=== PATIENT | male | born 1955 | race Two or more races ===

== ENCOUNTER 2023-10-06 06:33 | Emergency (ER) | payer OTHER ==
[~2023-10-06] VITALS: Ht 162.6 cm; Wt 63.5 kg
[2023-10-06] MEDS ORDERED: PLAVIX75 MG (06:37)
[2023-10-06] MEDS ORDERED: LISINOPRIL20 MG (06:37)
[2023-10-06] MEDS ORDERED: HYDROCHLOROTHIA50 MG (06:37)
[2023-10-06] MEDS ORDERED: LIPITOR40 M1 (06:37)
[2023-10-06] MEDS ORDERED: ADULT LOW DOSE81 M1 (06:38)
[2023-10-06] MEDS ORDERED: TOPROL XL25 M1 (06:38)
[2023-10-06] MEDS ORDERED: MEPERIDINE HCL 25 MG/ML AMPUL IV STA (07:36)
[2023-10-06] MEDS ORDERED: ONDANSETRON HCL 2 MG/ML VIAL IV STA (07:36)
[2023-10-06] MEDS ORDERED: FAMOTIDINE/PF 20 MG/2 ML VIAL IV PUSH STA (07:37)
[2023-10-06] MEDS ORDERED: 0.9 % SODIUM CHLORIDE 1,000 ML IV ONE (07:45)
[2023-10-06 09:17] LABS: PH,URINE 5.5 (5.0-8.0); URINE APPEARANCE Clear; URINE BILIRRUBIN Small (NEGATIVE); URINE BLOOD Negative; URINE COLOR Dark Yellow; URINE GLUCOSE Negative (NEGATIVE); URINE KETONE Trace (NEGATIVE); URINE LEUKOCYTE Negative; URINE NITRATE Negative; URINE PROTEIN 30 (NEGATIVE)
[2023-10-06 09:18] LABS: URINE BACTERIA 8.8 uL (0.0-1933); URINE RBC 28.4 uL (0.0-20.8)
[2023-10-06 09:21] LABS: URINE WBC 1.2 uL (0.0-23.2)
[2023-10-06 09:23] LABS: HEMATOCRIT 48.4 % (39.0-48.0); HEMOGLOBIN 16.3 g/dL (13-16.00); MEAN CELL VOLUME 92.1 fL (80.0-100.00); MEAN CORPUSCULAR HEMOGLOBIN 31.1 pg (27.00-32.0); MEAN CORPUSCULAR HGB CONC 33.7 g/dl (32.0-36.0); RED BLOOD COUNT 5.26 M/uL (4.00-6.00); RED CELL DISTRIBUTION WIDTH 13.2 % (11.5-14.5)
[2023-10-06 09:44] LABS: INR 1.07; PARTIAL THROMBOPLASTIN TIME 25.6 SECONDS (22.0-34.0)
[2023-10-06 09:45] LABS: PLATELET COUNT 139 K/uL (150-450)
[2023-10-06 10:09] LABS: PROTHROMBIN TIME 11.2 SECONDS (9.0-11.5)
[2023-10-06] MEDS ORDERED: FAMOtidine 10 MG/ML (4ML VIAL) IV PUSH STA (10:35)
[2023-10-06 11:27] LABS: ALBUMIN 3.6 gm/dL (3.4-5.0); BILIRUBIN TOTAL 0.62 mg/dL (0.3-1.2); BILIRUBIN,CONJUGATED 0.15 mg/dL (0.0-0.2); BILIRUBIN,UNCONJUGATED 0.47 mg/dL (0.0-0.6); CREATININE SERUM 0.84 mg/dL (0.70-1.30); GFR 91.14; GLOBULINA 3.2 G/DL (2.4-3.5); POTASSIUM 3.87 mEq/L (3.5-5.1); TOTAL PROTEIN 6.8 gm/dL (6.4-8.2)
== END 2023-10-06 12:55 | disposition home or self-care (01) ==
LOC: ER 06:34
PROVIDERS: General Practice
DX: K30 Functional dyspepsia (principal); K29.70 Gastritis, unspecified, without bleeding; R10.9 Unspecified abdominal pain; I10 Essential (primary) hypertension
CPT/HCPCS: 36415; 93005; 96365; 96366; 99282; J2405; J3490 ×3; J7030